=== PATIENT | female | born 1980 | race Caucasian/White ===

== ENCOUNTER 2017-11-26 06:30 | Day surgery (SDC) | payer OTHER ==
[2017-11-23 12:25] LABS: HEMOGLOBIN 12.8 g/dL (12.0-15.5); MEAN CORPUSCULAR HEMOGLOBIN 28.6 pg (27.0-33.4); MEAN CORPUSCULAR HGB CONC 33.8 g/dL (32.0-36.0); MEAN CORPUSCULAR VOLUME 85 fl (80-97); PLATELET COUNT 333 10^3/uL (150-450); RED BLOOD COUNT 4.48 10^6/uL (3.72-5.28); RED CELL DISTRIBUTION WIDTH 13.8 % (11.5-14.0); WHITE BLOOD COUNT 10.7 10^3/uL (4.0-10.5)
[2017-11-23 12:58] LABS: ALANINE AMINOTRANSFERASE 25 U/L (9-52); ALBUMIN 4.9 g/dL (3.5-5.0); ALKALINE PHOSPHATASE 62 U/L (38-126); ANION GAP 14 (5-19); ASPARTATE AMINO TRANSFERASE 23 U/L (14-36); BILIRUBIN,DIRECT 0.2 mg/dL (0.0-0.4); BILIRUBIN,TOTAL 0.5 mg/dL (0.2-1.3); BLOOD UREA NITROGEN 15 mg/dL (7-20); CALCIUM 10.1 mg/dL (8.4-10.2); CARBON DIOXIDE 25 mmol/L (22-30); CHLORIDE 103 mmol/L (98-107); GLUCOSE 83 mg/dL (75-110); POTASSIUM 4.7 mmol/L (3.6-5.0); SODIUM 141.5 mmol/L (137-145)
[~2017-11-26 06:30] MED LIST: BUPIVACAINE HCL 0.25 % INJ/PF (2.5 MG/1 ML) 30 ML VIAL ONE; CEFAZOLIN 2 GM/D5W RTU 2 GM/50 ML RTUPB IV PRN; LACTATED RINGERS 1000 ML IV PRN; LIDOCAINE 0.5% INJ-PF (5 MG/ML) 50 ML SDV SUBCUT PRN; METHYLENE BLUE 50 MG/10 ML AMPULE ONE
[2017-11-26] MEDS ORDERED: HYDROMORPHONE HCL INJ/PF 2 MG/ML AMPULE ONE (07:05)
[2017-11-26] MEDS ORDERED: EPHEDRINE SULFATE INJ 50 MG/1 ML AMPULE ONE (07:05)
[2017-11-26] MEDS ORDERED: FENTANYL CITRATE INJ/PF 100 MCG/2 ML AMPUL ONE ×2 (07:05→11:28)
[2017-11-26] MEDS ORDERED: MIDAZOLAM 2 MG/2 ML INJ ONE (07:05)
[2017-11-26] MEDS ORDERED: ACETAMINOPHEN 100 ML IV ONE (07:06)
[2017-11-26] MEDS ORDERED: PROPOFOL INJ 200 MG/20 ML VIAL IV ONE (07:06)
[2017-11-26] MEDS ORDERED: ONDANSETRON HCL INJ/PF 4 MG/2 ML SDV ONE ×2 (08:30→11:52)
[2017-11-26] MEDS ORDERED: KETOROLAC TROMETHAMINE 60 MG/2 ML SDV ONE (08:30)
[2017-11-26] MEDS ORDERED: LIDOCAINE 2% INJ-PF (20 MG/ML) 2 ML AMPUL ONE (08:30)
[2017-11-26] MEDS ORDERED: DEXAMETHASONE SOD PHOSPHATE INJ 4 MG/1 ML VIAL ONE (08:30)
[2017-11-26] MEDS ORDERED: NEOSTIGMINE METHYLSULFATE 10 MG/10 ML VIAL ONE (08:30)
[2017-11-26] MEDS ORDERED: VECURONIUM BROMIDE INJ 10 MG VIAL IV ONE (08:30)
[2017-11-26] MEDS ORDERED: METOCLOPRAMIDE HCL INJ/PF 10 MG/2 ML SDV ONE (08:30)
[2017-11-26] MEDS ORDERED: GLYCOPYRROLATE INJ 0.4 MG/2 ML VIAL ONE (08:30)
[2017-11-26] MEDS ORDERED: ROCURONIUM BROMIDE INJ 50 MG/5 ML VIAL IV ONE (08:30)
[2017-11-26] MEDS ORDERED: FENTANYL CITRATE INJ/PF 100 MCG/2 ML AMPUL IV PRN ×3 (09:53)
[2017-11-26] MEDS ORDERED: MORPHINE SULFATE 10 MG/ML INJ IV PRN (09:53)
[2017-11-26] MEDS ORDERED: OXYCODONE-ACETAMINOPHEN 5-325 MG TABLET PO PRN ×3 (09:53→13:58)
[2017-11-26] MEDS ORDERED: ONDANSETRON HCL INJ/PF 4 MG/2 ML SDV IV PRN ×2 (09:53→14:00)
[2017-11-26] MEDS ORDERED: PROMETHAZINE HCL INJ 25 MG/1 ML VIAL IV PRN ×3 (09:53→14:01)
[2017-11-26] MEDS ORDERED: MEPERIDINE HCL/PF INJ 25 MG/1 ML DISP.SYRIN IV PRN (09:53)
[2017-11-26] MEDS ORDERED: DIPHENHYDRAMINE HCL 50 MG/ML VIAL IV PRN (09:53)
--- NOTE | 2017-11-26 12:19 | OPERATIVE REPORT E ---
Operative Report NAME: JUAN LUIS SHAH : 1980 AGE: 37Y DATE OF SURGERY: 11/26/2017 ROOM: PREOPERATIVE DIAGNOSIS: 1. CHRONIC PELVIC PAIN. 2. ENDOMETRIOSIS. 3. ABNORMAL UTERINE BLEEDING, MENOMETRORRHAGIA, UNRESPONSIVE TO MEDICAL THERAPY. POSTOPERATIVE DIAGNOSIS: 1. CHRONIC PELVIC PAIN. 2. ENDOMETRIOSIS. 3. ABNORMAL UTERINE BLEEDING, MENOMETRORRHAGIA, UNRESPONSIVE TO MEDICAL THERAPY. OPERATION: 1. Robotic total laparoscopic hysterectomy. 2. Right remnant salpingectomy. 3. Right ovarian cystectomy of a large follicular cyst that was approximately 5 cm in size. 4. Cystoscopy. SURGEON: Carmencita Fernández M.D. ANESTHESIA: General. ESTIMATED BLOOD LOSS: 150 cc. INTRAVENOUS FLUIDS: 1,900 cc. URINE OUTPUT: 300 cc clear urine. COMPLICATIONS: None. INDICATIONS: Patient is a 37-year-old, G4, P4, 0-0-4, with a history of previous C section x2, with a history of chronic pelvic pain and endometriosis and menometrorrhagia unresponsive to medical therapy. The patient desired definitive surgical removal of her organs. Patient counseled on the procedure including, but not limited to, bleeding, infection, injury to surrounding organs or tissue, including bowel or bladder, and the need of transfusion, and the possibility of exploratory laparotomy in case there is bleeding that cannot be identified or visualized during the surgical procedure, or due to many adhesions from previous surgical interventions. The patient understood and consented to the procedure and agreed to proceed to the operating room. FINDINGS: Left ovary surgically absent from previous surgery. Left fallopian tube surgically absent from previous surgery. Right fallopian tube partially present. The fimbriated end was surgically absent from previous surgery. The right ovary was present, had multiple follicular cysts, the largest one in size approximately 5 cm. A right cystectomy was performed. Otherwise, normal ovary. The uterus seemed to be soft, boggy, consistent with adenomyosis. Anterior lower uterine segment adhesions. DESCRIPTION OF PROCEDURE: The patient was taken to the operating room. General anesthesia was induced without difficulty. The patient was placed in the dorsal lithotomy position and was sterilely prepped and draped in the usual, sterile fashion. A bear hugger was placed to maintain control of core body temperature. A Asher catheter was placed in the bladder. A single-toothed tenaculum was placed on the cervix and grasped. Cervical os was dilated. Uterine sounds approximately 9 cm. Two figure-of-8 stitches around 3 o'clock and 9 o'clock were placed for anchoring stitches before placing a V-Care and a V-Care manipulator was attached to the uterus with a cervical ring and anchored to the stitches on the right and the left. The weighted speculum and the single-toothed tenaculum were removed. Two sutures were placed on the lateral aspect of the cervix to be used as traction later, as well, in the procedure, and they were anchored to the stitches on the right and left within the ring itself. A vertical infraumbilical incision was performed where the Veress needle was introduced after injection with local Marcaine 0.25%. The Veress needle was then placed into the abdominal cavity. Through the Veress needle, carbon dioxide was infused until a pneumoperitoneum was established and maintained and this was done after a drop test was successfully performed. The Veress needle was removed. An infraumbilical incision was slightly extended. A 12 mm trocar was inserted and placed in the abdominal cavity under direct visualization with the laparoscope without any difficulty. Trocar removed. The robotic laparoscope was placed in the abdominal cavity. Please see the above findings. Three additional ports, 1 in the right lower, 1 in the left lower, and 1 in the right upper quadrant were inserted under direct visualization, 0.25% Marcaine was injected as local prior to initiating the insertion of the trocars. Special attention was paid to the ureters bilaterally and the ureters bilaterally were both well away from the surgical krause at all times. They were peristalsing and normal in nature. At this point, the surgical procedure was initiated on the left side of the uterus where the round ligament was cauterized and transected all the way down to the level of the uterines. There was no left ovary and there was no left fimbria left, so the round ligament was initiated with cauterization, transection all the way down to the level of the uterines. On the contralateral side, the right remnant of the fallopian tube was grasped and along the mesosalpinx was cauterized and transected all the way corneal region. The right utero-ovarian ligament was cauterized and transected. The right round ligament was cauterized and transected all the way down to the level of the uterines. The bladder flap was created from both the left and the right side and were connected in the middle and then the bladder was pushed down, away from the surgical field. Of course, at every stage of the procedure, ureters were visualized and were far away from the surgical field. The ring was identified anteriorly and anterior colpotomy was performed. The colpotomy was then extended, circumscribing the cervix from the vaginal mucosa very carefully anteriorly and posteriorly and then connecting them together. The uterus, the remnant of the fallopian tube on the right side, and the cervix were delivered through the vaginal mucosa. Prior to closing the vaginal cuff on the right side, the right cystectomy was performed of the follicular cyst that was approximately 5 cm in size. A small incision was performed in the middle of the follicular cyst and the cyst wall ruptured and the fluid was suctioned. The cyst wall was easily peeled off of the ovarian fossa and the cyst wall was sent off for pathological analysis. Also, there was a small, 2 cm follicular cyst, as well, that was removed in a similar fashion, and was sent off for pathological analysis. At this point, the vaginal cuff, posterior cul-de-sac and anterior cul-de-sac were thoroughly irrigated and suctioned and everything seemed to be hemostatic. The ureters were both visualized and were both peristalsing prior to the vaginal cuff closure. At this point, the vaginal cuff was closed using the running V-lock suture. After closure of the V-loc suture, attention was then turned to the ureters again bilaterally, to make sure they were far away from the surgical incision, and the vaginal cuff, and they were. After closure of the surgical incision on the vaginal cuff, FloSeal was injected along the vaginal cuff for prophylactic measures and hemostasis and inspection of the anterior, posterior, and lateral pelvic sidewalls and the anterior and posterior cul-de-sac. They were all hemostatic. While closing the vaginal cuff, I have asked for Anesthesia to give methylene blue in order to prepare for the cystoscopy portion. At this point, attention was turned to below from the bladder to perform the cystoscopy portion prior to removing the robotic instruments and the cystoscope was introduced without any difficulty. Cystoscope revealed no trauma, foreign bodies, or injury to the bladder or mucosal wall. Both ureters were identified and there was excellent, strong flow of efflux of blue urine bilaterally from both ureters on the right and the left side and they were within normal limits, and there was a normal bubble sign, as well. At this point, the cystoscope was removed, the robot undocked, abdomen desufflated, trocars removed. The 12 mm infraumbilical incision was repaired with a UR6 to reapproximate and repair the fascia. All the remaining incisions were closed with 4-0 Monocryl and reapproximated in a subcuticular fashion. Dermabond was applied on top of the incisions. All sponge, lap and needle counts were correct x2. The patient did receive prophylactic IV antibiotics. Asher bag was noted to contain clear urine at the end of the procedure. Asher catheter was removed. Vaginal mucosa was inspected and there were no lacerations. Sponge stick was performed to take out any remnants of old clotted blood. The patient was extubated and successfully went to the recovery room. The patient was in PACU in stable condition. The patient tolerated the procedure well. All sponge, lap, and needle counts were correct x2. DICTATING PHYSICIAN: Carmencita Fernández MD [id number] PHY#: [id number] ID: [id number] JOB#: [id number] ACCT: [id number] cc:Carmencita Fernández >
[2017-11-26] MEDS ORDERED: OXYCODONE HCL IR 5 MG TABLET PO PRN (13:59)
[2017-11-26 17:24] VITALS: BP 99/65
== END 2017-11-26 19:50 | disposition home or self-care (01) ==
LOC: OROUT 06:30 → 2S 12:41 → OROUT 19:50
PROVIDERS: ATTEND Obstetrics & Gynecology
PROC: 0UT54ZZ Resection of Right Fallopian Tube, Percutaneous Endoscopic Approach (ICD-10-PCS; 2017-11-26)
PROC: 8E0W0CZ Robotic Assisted Procedure of Trunk Region, Open Approach (ICD-10-PCS; 2017-11-26)
PROC: 0UB04ZZ Excision of Right Ovary, Percutaneous Endoscopic Approach (ICD-10-PCS; 2017-11-26)
PROC: 0UT94ZZ Resection of Uterus, Percutaneous Endoscopic Approach (ICD-10-PCS; principal; 2017-11-26 08:30)
DX: N80.0 Endometriosis of uterus (principal); N72 Inflammatory disease of cervix uteri; N83.11 Corpus luteum cyst of right ovary; G89.29 Other chronic pain; N92.1 Excessive and frequent menstruation with irregular cycle; R10.2 Pelvic and perineal pain; E03.9 Hypothyroidism, unspecified; E06.3 Autoimmune thyroiditis; Z79.899 Other long term (current) drug therapy
CPT/HCPCS: 58571; 58662; S2900; 36415; 80053; 81025; 840; 85027; 86850; 86900; 86901; 88305; 88307; J0131; J0690; J1100; J1170; J1885; J2250; J2405; J2704; J2765; J3010; J3490; Q9968